=== PATIENT | female | born 1970 ===

== ENCOUNTER 2021-05-26 07:32 | Inpatient (IN) | payer OTHER ==
[~2021-05-26] VITALS: Ht 160 cm; Wt 56.4 kg
[2021-05-26] MEDS ORDERED: LORazepam 2 MG/ML, 1ML ONE (07:53)
[2021-05-26] MEDS ORDERED: PLEASE ENTER ALLERGIES MC SCH (08:00)
[2021-05-26] MEDS ORDERED: PLEASE ENTER HEIGHT AND WEIGHT MC SCH (08:00)
[2021-05-26] MEDS ORDERED: DEXTROSE 5% 500 ML IV SCH (08:00)
[2021-05-26] MEDS ORDERED: SODIUM CHLORIDE FLUSH 10ML SYR IVF ONE (08:00)
[2021-05-26] MEDS ORDERED: LORazepam 2 MG/ML, 1ML IVPush ONE ×2 (08:00→08:30)
[2021-05-26] MEDS ORDERED: LACTATED RINGERS 1,000 ML IVBOLUS ONE (08:00)
[2021-05-26 08:04] LABS: MEAN CORPUSCULAR HEMOGLOBIN 28.7 pg (27.0-34.8); MEAN CORPUSCULAR HGB CONC 31.2 g/dL (33.2-36.2); MEAN PLATELET VOLUME 8.8 fL (7.4-10.4); PLATELET COUNT 56 x10^3/uL (130-400); RED BLOOD COUNT 3.17 x10^6/uL (3.82-5.82); RED CELL DISTRIBUTION WIDTH 22.6 % (9.4-14.8)
[2021-05-26 08:17] LABS: ALBUMIN 2.9 g/dL (3.4-5.0); ANION GAP 23 mmol/L (5-15); CALCIUM 8.4 mg/dL (8.5-10.1); CHLORIDE 108 mmol/L (98-107)
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
--- NOTE | 2021-05-26 08:18 | NUR ---
Medicated for aggitation, pulling lines/tubes. Straight cath via sterile technique clear yellow urine walked to lab. Pt taken to CT is now calm. Remains ALOC. IVF LR wide open. VSS. Sinus tach no ectopy.
--- NOTE | 2021-05-26 08:20 | NUR ---
Late entry: Pt also noted to have dried blood to mouth/lips.
[2021-05-26 08:31] LABS: ALANINE AMINOTRANSFERASE 33 U/L (12-78); ALKALINE PHOSPHATASE 122 U/L (45-117); BILIRUBIN,TOTAL 3.5 mg/dL (0.2-1.0); CREATINE KINASE, TOTAL 1900 U/L (26-192); CREATININE 1.27 mg/dL (0.55-1.02); TOTAL PROTEIN 8.1 g/dL (6.4-8.2)
[2021-05-26] MEDS ORDERED: POTASSIUM CHLORIDE 40 MEQ in DEXTROSE 5% 1,000 ML IV SCH (09:00)
[2021-05-26 09:08] LABS: MICROSCOPIC AUTO
[2021-05-26 09:15] LABS: BAND#(MANUAL) 1.64 x10^3/uL; BANDS%(MANUAL) 21 % (0-7); LYMPH#(MANUAL) 0.08 x10^3/uL (1-3.4); LYMPHS% (MANUAL) 1 % (22-44); METAMYELOCYTES# (MANUAL) 0.16 x10^3/uL (0-0); METAMYELOCYTES% (MANUAL) 2 % (0-1); MONOS#(MANUAL) 0.39 x10^3/uL (0.3-2.7); MONOS% (MANUAL) 5 % (2-9); SEG#(MANUAL) 5.54 x10^3/uL (1.8-6.8); SEGS% (MANUAL) 71 % (42-75)
[2021-05-26 09:20] LABS: <PLATELET ESTIMATE> DECREASED; <PLT MORPHOLOGY> NORMAL PLT MORPH
[2021-05-26 09:20] LABS: AMPHETAMINE SCREEN, URINE Negative (Negative); BARBITURATE SCREEN, URINE Negative (Negative); BENZODIAZEPINE SCREEN, URINE Negative (Negative); CANNABINOID SCREEN, URINE Negative (Negative); COCAINE SCREEN, URINE Negative (Negative); METHADONE SCREEN, URINE Negative (Negative); OPIATE SCREEN, URINE Negative (Negative)
[2021-05-26 09:21] LABS: ANISOCYTOSIS 2+
[2021-05-26 09:22] LABS: HYPOCHROMIA 1+; OVALOCYTES 1+; POLYCHROMASIA 1+; TARGET CELLS 1+
[2021-05-26] MEDS ORDERED: CEFTRIAXONE 1,000 MG in DEXTROSE 5% 50 ML IVPB ONE (09:30)
--- NOTE | 2021-05-26 09:51 | NUR ---
Pt remains sedated s/p ativan, RR equal and unlabored, IVF infusing dial a flow, abx no cultures per ERP. Waiting for admission; pt possibly will need sitter due to ALOC, high ammonia. VSS.
--- NOTE | 2021-05-26 10:03 | NUR ---
Pt taken to xray.
--- NOTE | 2021-05-26 10:09 | NUR ---
Pt back from xray, remains sleepy RR equal and unlabored. VSS. Waiting for admission.
--- NOTE | 2021-05-26 10:23 | NUR ---
Repot to DANIEL morales pt with belongings tx to floor on monitor.
--- NOTE | 2021-05-26 10:49 | NUR ---
Hospitalist here to evaluate pt, EKG done at bedside handed to ERP. Pt tx to floor.
[2021-05-26] MEDS ORDERED: ACETAMINOPHEN 325 MG TABLET PO PRN (11:00)
[2021-05-26] MEDS ORDERED: LACTATED RINGERS 1,000 ML IV SCH (11:00)
[2021-05-26] MEDS ORDERED: ENALAPRILAT 1.25 MG/ML, 2ML IVPush PRN (11:00)
[2021-05-26] MEDS ORDERED: ONDANSETRON 2MG/ML, 2ML IVPush PRN (11:00)
[2021-05-26 11:08] VITALS: BP 112/75
[2021-05-26 13:31] VITALS: BP 126/87
[2021-05-26] MEDS ORDERED: DEXTROSE 50%, 50ML SYRINGE IVPush PRN (14:30)
[2021-05-26] MEDS ORDERED: GLUCAGON 1 MG IM PRN (14:30)
[2021-05-26] MEDS ORDERED: DEXTROSE 4 GM TAB.CHEW PO PRN (14:30)
[2021-05-26] MEDS: LORazepam 2 MG/ML, 1ML IVPush PRN ×2 (14:49→20:06)
[2021-05-26] MEDS: METRONIDAZOLE PMX 500MG/100ML 100 ML IV SCH ×2 (15:07→21:12)
[2021-05-26] MEDS: POTASSIUM CHLORIDE 40 MEQ in DEXTROSE 5% 1,000 ML IV SCH ×2 (15:20→21:59)
[2021-05-26 19:53] VITALS: BP 106/68
[2021-05-26] MEDS: SODIUM CHLORIDE FLUSH 10ML SYR IVF SCH (20:07)
[2021-05-27 01:24] VITALS: BP 115/76
[2021-05-27 02:15] VITALS: BP 111/73
[2021-05-27] MEDS: METRONIDAZOLE PMX 500MG/100ML 100 ML IV SCH ×4 (03:18→21:56)
[2021-05-27 04:29] LABS: MEAN CORPUSCULAR HEMOGLOBIN 28.8 pg (27.0-34.8); MEAN CORPUSCULAR HGB CONC 32.1 g/dL (32.4-35.8); MEAN PLATELET VOLUME 9.3 fL (7.4-10.4); RED BLOOD COUNT 3.21 x10^6/uL (3.82-5.3); RED CELL DISTRIBUTION WIDTH 23.1 % (9.6-15.2)
[2021-05-27 04:40] LABS: CHLORIDE 105 mmol/L (98-107)
[2021-05-27 04:47] LABS: ALANINE AMINOTRANSFERASE 31 U/L (12-78); ALBUMIN 2.3 g/dL (3.4-5.0); ALKALINE PHOSPHATASE 99 U/L (45-117); ANION GAP 11 mmol/L (5-15); BILIRUBIN,TOTAL 2.5 mg/dL (0.2-1.0); CREATININE 0.88 mg/dL (0.55-1.02); TOTAL PROTEIN 6.8 g/dL (6.4-8.2)
[2021-05-27] MEDS: POTASSIUM CHLORIDE 40 MEQ in DEXTROSE 5% 1,000 ML IV SCH ×2 (05:38→20:44)
[2021-05-27 05:50] LABS: PLATELET COUNT 44 x10^3/uL (130-400)
[2021-05-27 05:54] LABS: <PLATELET ESTIMATE> DECREASED; ANISOCYTOSIS 2+; BAND#(MANUAL) 0.44 x10^3/uL; BANDS%(MANUAL) 8 % (0-7); BASOS#(MANUAL) 0.11 x10^3/uL (0-0.1); BASOS% (MANUAL) 2 % (0-1); EOS#(MANUAL) 0.22 x10^3/uL (0.0-0.4); EOS% (MANUAL) 4 % (1-7); HYPOCHROMIA 1+; LYMPH#(MANUAL) 0.33 x10^3/uL (1-3.4); LYMPHS% (MANUAL) 6 % (22-44); MONOS#(MANUAL) 0.44 x10^3/uL (0.3-2.7); MONOS% (MANUAL) 8 % (2-9); OVALOCYTES 1+; POLYCHROMASIA 1+; SEG#(MANUAL) 3.96 x10^3/uL (1.8-6.8); SEGS% (MANUAL) 72 % (42-75); TARGET CELLS 1+
[2021-05-27 05:55] LABS: LARGE PLATELETS 1+; MICROCYTOSIS 1+
[2021-05-27 08:33] VITALS: BP 106/71
[2021-05-27] MEDS: SODIUM CHLORIDE FLUSH 10ML SYR IVF SCH ×2 (08:35→20:50)
[2021-05-27] MEDS: CEFTRIAXONE 2 GM in DEXTROSE 5% 50 ML IVPB SCH (09:55)
[2021-05-27] MEDS ORDERED: POTASSIUM CHLORIDE 40 MEQ in SODIUM CHLORIDE 0.9% 500 ML IV ONE (10:00)
[2021-05-27] MEDS ORDERED: POTASSIUM PHOSPHATE 44 MEQ in SODIUM CHLORIDE 0.9% 500 ML IV ONE ×2 (10:00→11:30)
[2021-05-27] MEDS ORDERED: MAGNESIUM SULFATE PMX 4GM/100M 100 ML IVPB ONE (10:00)
[2021-05-27 12:47] VITALS: BP 100/68
[2021-05-27 12:56] LABS: ANION GAP 8 mmol/L (5-15); CALCIUM 7.7 mg/dL (8.5-10.1); CHLORIDE 107 mmol/L (98-107); CREATININE 0.75 mg/dL (0.55-1.02)
[2021-05-27 14:10] VITALS: BP 103/68
[2021-05-27] MEDS: LACTULOSE 20 GM/30 ML UDC NG SCH ×3 (15:00→20:44)
[2021-05-27] MEDS: PANTOPRAZOLE 40 MG IV IVPush SCH (15:00)
[2021-05-27] MEDS ORDERED: TPN PER PHARMACY MC SCH (15:00)
[2021-05-27] MEDS ORDERED: CALCIUM GLUCONATE 0.46MEQ/1ML IVPush ONE (15:00)
[2021-05-27] MEDS ORDERED: AMINO ACID 10% IV SCH (15:30)
[2021-05-27] MEDS ORDERED: DEXTROSE 70% IV SCH (15:30)
[2021-05-27] MEDS ORDERED: [UNRECOGNIZED DRUG - OTHER] IV SCH (15:30)
[2021-05-27] MEDS ORDERED: FAT EMUL IV SCH (15:30)
[2021-05-27] MEDS ORDERED: SMOF TPN IV SCH (15:30)
[2021-05-27] MEDS ORDERED: CALCIUM GLUCONATE 4.6 MEQ in SODIUM CHLORIDE 0.9% 100 ML IV ONE (15:30)
[2021-05-27] MEDS ORDERED: DEXTROSE 50%, 50ML SYRINGE IVPush PRN (17:00)
[2021-05-27] MEDS ORDERED: DEXTROSE 10% 500 ML IV PRN (17:00)
[2021-05-27] MEDS ORDERED: PVN PER PHARMACY IV SCH (17:00)
[2021-05-27 18:01] LABS: MEAN CORPUSCULAR HEMOGLOBIN 28.5 pg (27.0-34.8); MEAN CORPUSCULAR HGB CONC 30.5 g/dL (32.4-35.8); MEAN PLATELET VOLUME 9.6 fL (7.4-10.4); PLATELET COUNT 64 x10^3/uL (130-400); RED BLOOD COUNT 3.28 x10^6/uL (3.82-5.3); RED CELL DISTRIBUTION WIDTH 23.4 % (9.6-15.2)
[2021-05-27] MEDS ORDERED: PROPOFOL 100 ML IV ONE (18:09)
[2021-05-27 18:11] LABS: INTERNATIONAL NORMALIZED RATIO 1.46 (0.93-1.1); PROTHROMBIN TIME 15.3 Seconds (9.6-11.5)
[2021-05-27 18:12] LABS: ALANINE AMINOTRANSFERASE 36 U/L (12-78); ALBUMIN 2.3 g/dL (3.4-5.0); ANION GAP 15 mmol/L (5-15); CHLORIDE 110 mmol/L (98-107); CREATININE 1.04 mg/dL (0.55-1.02)
[2021-05-27 18:15] LABS: ALKALINE PHOSPHATASE 131 U/L (45-117); BILIRUBIN,TOTAL 1.8 mg/dL (0.2-1.0); TOTAL PROTEIN 6.9 g/dL (6.4-8.2)
[2021-05-27] MEDS ORDERED: CALCIUM CHLORIDE 10%, 10ML SYR ONE (18:30)
[2021-05-27] MEDS ORDERED: EPINEPHRINE SYRINGE 0.1 MG/ML, 10ML ONE (18:30)
[2021-05-27] MEDS ORDERED: MAGNESIUM SULFATE 1 GM/2 ML ONE (18:30)
[2021-05-27] MEDS ORDERED: LIDOCAINE-MPF 1%, 2ML ENDO PRN (18:30)
[2021-05-27] MEDS ORDERED: PHARMACY MAY ADJ FOR RENAL FX MC SCH (18:30)
[2021-05-27] MEDS: PROPOFOL 100 ML IV PRN ×2 (18:30→23:13)
[2021-05-27] MEDS ORDERED: CODE BLUE RESPONSE XX ONE (18:30)
[2021-05-27] MEDS ORDERED: AMIODARONE 50 MG/ML, 3ML ONE (18:30)
[2021-05-27] MEDS: NOREPINEPHRINE 8 MG in SODIUM CHLORIDE 0.9% 242 ML IV PRN (18:40)
[2021-05-27] MEDS: AMIODARONE 450 MG in DEXTROSE 5% 241 ML IV PRN (18:47)
[2021-05-27] MEDS ORDERED: FILTER 0.22 MICRON FOR AMIODARONE IV PRN (19:00)
[2021-05-27] MEDS ORDERED: LACTATED RINGERS 1,000 ML IVBOLUS ONE ×2 (19:00→20:30)
[2021-05-27 19:07] LABS: BAND#(MANUAL) 0.63 x10^3/uL; BANDS%(MANUAL) 4 % (0-7); BASOS#(MANUAL) 0.16 x10^3/uL (0-0.1); BASOS% (MANUAL) 1 % (0-1); EOS#(MANUAL) 0.47 x10^3/uL (0.0-0.4); EOS% (MANUAL) 3 % (1-7); LYMPH#(MANUAL) 2.04 x10^3/uL (1-3.4); LYMPHS% (MANUAL) 13 % (22-44); METAMYELOCYTES# (MANUAL) 1.73 x10^3/uL (0-0); METAMYELOCYTES% (MANUAL) 11 % (0-1); MONOS#(MANUAL) 0.47 x10^3/uL (0.3-2.7); MONOS% (MANUAL) 3 % (2-9); SEG#(MANUAL) 10.21 x10^3/uL (1.8-6.8); SEGS% (MANUAL) 65 % (42-75)
[2021-05-27 19:08] LABS: <PLATELET ESTIMATE> DECREASED; <PLT MORPHOLOGY> NORMAL PLT MORPH
[2021-05-27 19:10] LABS: ANISOCYTOSIS 1+; POLYCHROMASIA 1+
[2021-05-27 19:11] LABS: CRENATED 1+; OVALOCYTES 1+
[2021-05-27] MEDS ORDERED: POTASSIUM CHLORIDE 30 MEQ in SODIUM CHLORIDE 0.9% 100 ML IV ONE (20:00)
[2021-05-27] MEDS: KSCALE TO 4.0 IV SCH (20:05)
[2021-05-27] MEDS ORDERED: SODIUM BICARB 8.4%, 50ML SYRINGE IVPush ONE (20:30)
[2021-05-27] MEDS: INSULIN REGULAR MEDIUM DOSE Q6H X 48HRS SQ-INSULIN SCH (20:50)
[2021-05-27] MEDS ORDERED: POTASSIUM PHOSPHATE 44 MEQ in SODIUM CHLORIDE 0.9% 500 ML IV SCH (21:00)
[2021-05-28] MEDS: KSCALE TO 4.0 IV SCH ×3 (00:30→12:30)
[2021-05-28 00:55] LABS: ALANINE AMINOTRANSFERASE 35 U/L (12-78); ALBUMIN 1.7 g/dL (3.4-5.0); ANION GAP 9 mmol/L (5-15); CALCIUM 8.1 mg/dL (8.5-10.1); CHLORIDE 110 mmol/L (98-107); CREATININE 1.05 mg/dL (0.55-1.02)
[2021-05-28 00:57] LABS: ALKALINE PHOSPHATASE 93 U/L (45-117); BILIRUBIN,TOTAL 2.2 mg/dL (0.2-1.0); TOTAL PROTEIN 5.4 g/dL (6.4-8.2)
[2021-05-28] MEDS: AMIODARONE 450 MG in DEXTROSE 5% 241 ML IV PRN (01:50)
[2021-05-28] MEDS: PANTOPRAZOLE 40 MG IV IVPush SCH ×2 (03:27→15:20)
[2021-05-28] MEDS: METRONIDAZOLE PMX 500MG/100ML 100 ML IV SCH ×4 (03:27→19:59)
[2021-05-28] MEDS: INSULIN REGULAR MEDIUM DOSE Q6H X 48HRS SQ-INSULIN SCH ×4 (03:37→20:02)
[2021-05-28] MEDS: POTASSIUM CHLORIDE 40 MEQ in DEXTROSE 5% 1,000 ML IV SCH (03:39)
[2021-05-28 03:52] LABS: MEAN CORPUSCULAR HEMOGLOBIN 29.7 pg (27.0-34.8); MEAN PLATELET VOLUME 9.5 fL (7.4-10.4); PLATELET COUNT 78 x10^3/uL (130-400); RED BLOOD COUNT 2.29 x10^6/uL (3.82-5.3); RED CELL DISTRIBUTION WIDTH 23.4 % (9.6-15.2)
[2021-05-28 04:02] LABS: ANION GAP 10 mmol/L (5-15); CALCIUM 7.8 mg/dL (8.5-10.1); CHLORIDE 109 mmol/L (98-107)
[2021-05-28 04:10] LABS: ALANINE AMINOTRANSFERASE 37 U/L (12-78); ALKALINE PHOSPHATASE 86 U/L (45-117); CREATININE 1.02 mg/dL (0.55-1.02); PREALBUMIN 6.3 mg/dL (20.0-40.0); TOTAL PROTEIN 5.3 g/dL (6.4-8.2); TRIGLYCERIDES 157 mg/dL (50-200)
[2021-05-28 05:46] LABS: BASOPHILS % (AUTO) 0 % (0-1); EOSINOPHILS % (AUTO) 1 % (1-7); LYMPHOCYTES % (AUTO) 6 % (22-44); MEAN CORPUSCULAR HGB CONC 31.9 g/dL (32.4-35.8); MEAN PLATELET VOLUME 9.9 fL (7.4-10.4); MONOCYTES % (AUTO) 7 % (2-9); NEUTROPHILS % (AUTO) 85 % (42-75); PLATELET COUNT 81 x10^3/uL (130-400); RED BLOOD COUNT 2.46 x10^6/uL (3.82-5.3); RED CELL DISTRIBUTION WIDTH 23.6 % (9.6-15.2)
[2021-05-28 05:50] LABS: ANISOCYTOSIS 1+; BAND#(MANUAL) 0.54 x10^3/uL; BANDS%(MANUAL) 5 % (0-7); LYMPH#(MANUAL) 0.32 x10^3/uL (1-3.4); LYMPHS% (MANUAL) 3 % (22-44); MONOS#(MANUAL) 0.43 x10^3/uL (0.3-2.7); MONOS% (MANUAL) 4 % (2-9); POLYCHROMASIA 1+; SEG#(MANUAL) 9.42 x10^3/uL (1.8-6.8); SEGS% (MANUAL) 88 % (42-75)
[2021-05-28 05:51] LABS: <PLATELET ESTIMATE> DECREASED; <PLT MORPHOLOGY> NORMAL PLT MORPH
[2021-05-28 05:56] LABS: ALBUMIN 1.8 g/dL (3.4-5.0); ANION GAP 9 mmol/L (5-15); CHLORIDE 109 mmol/L (98-107); TRIGLYCERIDES 182 mg/dL (50-200)
[2021-05-28] MEDS ORDERED: POTASSIUM PHOSPHATE 44 MEQ in SODIUM CHLORIDE 0.9% 500 ML IV ONE ×3 (06:00→13:30)
[2021-05-28] MEDS ORDERED: PHYTONADIONE 10 MG in SODIUM CHLORIDE 0.9% 50 ML IV ONE (06:00)
[2021-05-28] MEDS ORDERED: POTASSIUM CHLORIDE 10% 40 MEQ/30 ML UDC PO ONE (06:00)
[2021-05-28 06:02] LABS: ALANINE AMINOTRANSFERASE 38 U/L (12-78); ALKALINE PHOSPHATASE 87 U/L (45-117); BILIRUBIN,TOTAL 2.1 mg/dL (0.2-1.0); PREALBUMIN 6.6 mg/dL (20.0-40.0); TOTAL PROTEIN 5.5 g/dL (6.4-8.2)
[2021-05-28] MEDS: NOREPINEPHRINE 8 MG in SODIUM CHLORIDE 0.9% 242 ML IV PRN ×2 (06:55→20:00)
[2021-05-28 06:56] LABS: ANISOCYTOSIS 1+; BANDS%(MANUAL) 6 % (0-7); EOS#(MANUAL) 0.12 x10^3/uL (0.0-0.4); EOS% (MANUAL) 1 % (1-7); LYMPHS% (MANUAL) 6 % (22-44); MONOS#(MANUAL) 0.46 x10^3/uL (0.3-2.7); MONOS% (MANUAL) 4 % (2-9); POLYCHROMASIA 1+; SEG#(MANUAL) 9.63 x10^3/uL (1.8-6.8); SEGS% (MANUAL) 83 % (42-75)
[2021-05-28 06:57] LABS: <PLATELET ESTIMATE> DECREASED; <PLT MORPHOLOGY> NORMAL PLT MORPH; HYPOCHROMIA 1+; OVALOCYTES 1+
[2021-05-28] MEDS: CEFTRIAXONE 2 GM in DEXTROSE 5% 50 ML IVPB SCH (09:33)
[2021-05-28] MEDS: LACTULOSE 20 GM/30 ML UDC NG SCH ×3 (09:41→19:59)
[2021-05-28] MEDS: SODIUM CHLORIDE FLUSH 10ML SYR IVF SCH ×2 (09:42→19:59)
[2021-05-28] MEDS: PROPOFOL 100 ML IV PRN ×3 (09:42→23:47)
[2021-05-28] MEDS ORDERED: SUCCINYLCHOLINE 20 MG/ML, 10ML ONE (10:46)
[2021-05-28] MEDS ORDERED: EPINEPHRINE SYRINGE 0.1 MG/ML, 10ML ONE (10:53)
[2021-05-28] MEDS ORDERED: POTASSIUM CHLORIDE 40 MEQ in DEXTROSE 5% 1,000 ML IV SCH (11:00)
[2021-05-28 11:17] VITALS: BP 101/53
[2021-05-28 11:32] VITALS: BP 102/69
[2021-05-28 11:47] VITALS: BP 90/55
[2021-05-28 13:58] VITALS: BP 113/76
[2021-05-28 15:00] VITALS: BP 99/51
[2021-05-28] MEDS ORDERED: AMINO ACID 10% IV SCH (17:00)
[2021-05-28] MEDS ORDERED: DEXTROSE 70% IV SCH (17:00)
[2021-05-28] MEDS ORDERED: [UNRECOGNIZED DRUG - OTHER] IV SCH (17:00)
[2021-05-28] MEDS ORDERED: SMOF TPN IV SCH (17:00)
[2021-05-28] MEDS ORDERED: DEXTROSE 5% 1,000 ML IV SCH (17:00)
[2021-05-28] MEDS ORDERED: FAT EMUL IV SCH (17:00)
[2021-05-29] MEDS: METRONIDAZOLE PMX 500MG/100ML 100 ML IV SCH ×4 (02:13→19:48)
[2021-05-29] MEDS: PANTOPRAZOLE 40 MG IV IVPush SCH ×2 (02:13→16:50)
[2021-05-29] MEDS: INSULIN REGULAR MEDIUM DOSE Q6H X 48HRS SQ-INSULIN SCH ×3 (02:17→16:50)
[2021-05-29 04:30] LABS: CHLORIDE 114 mmol/L (98-107)
[2021-05-29] MEDS: PROPOFOL 100 ML IV PRN ×4 (04:36→22:47)
[2021-05-29 04:39] LABS: ANION GAP 5 mmol/L (5-15); CALCIUM 6.4 mg/dL (8.5-10.1)
[2021-05-29 04:52] LABS: INTERNATIONAL NORMALIZED RATIO 1.84 (0.93-1.1); PROTHROMBIN TIME 19.1 Seconds (9.6-11.5)
[2021-05-29 05:00] LABS: MEAN CORPUSCULAR HGB CONC 33.4 g/dL (32.4-35.8); MEAN PLATELET VOLUME 9.5 fL (7.4-10.4); RED BLOOD COUNT 2.58 x10^6/uL (3.82-5.3); RED CELL DISTRIBUTION WIDTH 21.4 % (9.6-15.2)
[2021-05-29] MEDS ORDERED: POTASSIUM PHOSPHATE 44 MEQ in SODIUM CHLORIDE 0.9% 500 ML IV ONE (05:00)
[2021-05-29 05:05] LABS: PLATELET COUNT 52 x10^3/uL (130-400)
[2021-05-29] MEDS: MAGNESIUM SULFATE PMX 2GM/50ML 50 ML IVPB SCH ×2 (05:20→08:53)
[2021-05-29] MEDS ORDERED: CALCIUM GLUCONATE 4.6 MEQ/10 ML IVPush ONE (05:30)
[2021-05-29 05:42] VITALS: BP 79/47
[2021-05-29 05:51] LABS: BASOS#(MANUAL) 0.07 x10^3/uL (0-0.1); BASOS% (MANUAL) 1 % (0-1); METAMYELOCYTES# (MANUAL) 0.07 x10^3/uL (0-0); METAMYELOCYTES% (MANUAL) 1 % (0-1)
[2021-05-29 05:52] LABS: ANISOCYTOSIS 1+; BAND#(MANUAL) 0.28 x10^3/uL; BANDS%(MANUAL) 4 % (0-7); EOS#(MANUAL) 0.43 x10^3/uL (0.0-0.4); EOS% (MANUAL) 6 % (1-7); HYPOCHROMIA 1+; LYMPH#(MANUAL) 0.43 x10^3/uL (1-3.4); LYMPHS% (MANUAL) 6 % (22-44); MONOS% (MANUAL) 7 % (2-9); POLYCHROMASIA 1+; SEG#(MANUAL) 5.33 x10^3/uL (1.8-6.8); SEGS% (MANUAL) 75 % (42-75)
[2021-05-29 05:53] LABS: <PLATELET ESTIMATE> DECREASED; <PLT MORPHOLOGY> NORMAL PLT MORPH; OVALOCYTES 1+
[2021-05-29 05:58] VITALS: BP 95/60
[2021-05-29] MEDS ORDERED: CALCIUM GLUCONATE 4.6 MEQ in SODIUM CHLORIDE 0.9% 100 ML IV ONE ×2 (06:00→11:00)
[2021-05-29 07:00] VITALS: BP 104/68
[2021-05-29 08:00] VITALS: BP 105/71
[2021-05-29] MEDS: SODIUM CHLORIDE FLUSH 10ML SYR IVF SCH ×2 (08:45→19:48)
[2021-05-29] MEDS: CEFTRIAXONE 2 GM in DEXTROSE 5% 50 ML IVPB SCH (08:45)
[2021-05-29] MEDS: LACTULOSE 20 GM/30 ML UDC NG SCH ×3 (08:52→19:48)
[2021-05-29] MEDS ORDERED: DEXTROSE 5% 1,000 ML IV SCH (09:58)
[2021-05-29] MEDS ORDERED: STERILE WATER IV SCH (17:00)
[2021-05-29] MEDS ORDERED: DEXTROSE 70% IV SCH (17:00)
[2021-05-29] MEDS ORDERED: AMINO ACID 10% IV SCH (17:00)
[2021-05-29] MEDS ORDERED: [UNRECOGNIZED DRUG - OTHER] IV SCH (17:00)
[2021-05-29] MEDS: FILTER, DISP 1.2 MICRON FOR TPN/PVN IV PRN (17:38)
[2021-05-30] MEDS: PANTOPRAZOLE 40 MG IV IVPush SCH ×2 (03:16→15:27)
[2021-05-30] MEDS: METRONIDAZOLE PMX 500MG/100ML 100 ML IV SCH ×2 (03:16→08:28)
[2021-05-30] MEDS: PROPOFOL 100 ML IV PRN ×4 (04:00→20:46)
[2021-05-30 04:54] LABS: MEAN CORPUSCULAR HEMOGLOBIN 30.7 pg (27.0-34.8); MEAN CORPUSCULAR HGB CONC 33.6 g/dL (32.4-35.8); MEAN PLATELET VOLUME 8.7 fL (7.4-10.4); PLATELET COUNT 66 x10^3/uL (130-400); RED BLOOD COUNT 3.21 x10^6/uL (3.82-5.3); RED CELL DISTRIBUTION WIDTH 20.6 % (9.6-15.2)
[2021-05-30 05:00] LABS: ALBUMIN 1.7 g/dL (3.4-5.0); ANION GAP 3 mmol/L (5-15); CALCIUM 6.8 mg/dL (8.5-10.1); CHLORIDE 114 mmol/L (98-107)
[2021-05-30 05:05] LABS: ALANINE AMINOTRANSFERASE 34 U/L (12-78); ALKALINE PHOSPHATASE 95 U/L (45-117); BILIRUBIN,TOTAL 1.9 mg/dL (0.2-1.0); CREATININE 0.79 mg/dL (0.55-1.02); TOTAL PROTEIN 5.4 g/dL (6.4-8.2); TRIGLYCERIDES 61 mg/dL (50-200)
[2021-05-30 05:54] LABS: BAND#(MANUAL) 0.12 x10^3/uL; BANDS%(MANUAL) 2 % (0-7); EOS#(MANUAL) 0.43 x10^3/uL (0.0-0.4); EOS% (MANUAL) 7 % (1-7); LYMPH#(MANUAL) 0.62 x10^3/uL (1-3.4); LYMPHS% (MANUAL) 10 % (22-44); MONOS#(MANUAL) 0.93 x10^3/uL (0.3-2.7); MONOS% (MANUAL) 15 % (2-9); SEG#(MANUAL) 4.09 x10^3/uL (1.8-6.8); SEGS% (MANUAL) 66 % (42-75)
[2021-05-30 05:56] LABS: ANISOCYTOSIS 1+; HYPOCHROMIA 1+; OVALOCYTES 1+; POLYCHROMASIA 1+; TEAR DROPS 1+
[2021-05-30 05:57] LABS: TARGET CELLS 1+
[2021-05-30 05:58] LABS: <PLATELET ESTIMATE> DECREASED; <PLT MORPHOLOGY> NORMAL PLT MORPH
[2021-05-30] MEDS ORDERED: CALCIUM CHLORIDE 27.2 MEQ in SODIUM CHLORIDE 0.9% 100 ML IV ONE (06:00)
[2021-05-30] MEDS ORDERED: SODIUM PHOSPHATE 30 MMOL in SODIUM CHLORIDE 0.9% 500 ML IV ONE (06:00)
[2021-05-30] MEDS: LACTULOSE 20 GM/30 ML UDC NG SCH (08:14)
[2021-05-30] MEDS: INSULIN REGULAR MEDIUM DOSE QDAY SQ-INSULIN SCH (08:20)
[2021-05-30] MEDS: SODIUM CHLORIDE FLUSH 10ML SYR IVF SCH ×2 (08:28→20:46)
[2021-05-30] MEDS ORDERED: LACTULOSE 20 GM/30 ML UDC NG PRN (09:30)
[2021-05-30] MEDS: DIVALPROEX 125 MG CAP.SPRINK PO SCH ×2 (09:53→20:46)
[2021-05-30] MEDS ORDERED: MAGNESIUM SULFATE PMX 2GM/50ML 50 ML IV ONE (10:30)
[2021-05-30] MEDS ORDERED: CEFAZOLIN 2,000 MG in SODIUM CHLORIDE 0.9% 50 ML IV SCH (10:30)
[2021-05-30] MEDS: CEFAZOLIN PMX 2GM/50ML 50 ML IVPB SCH ×2 (10:40→18:01)
[2021-05-30] MEDS ORDERED: FENTANYL PF 100 MCG/2ML ONE (11:19)
[2021-05-30] MEDS: FENTANYL PF 100 MCG/2ML IVPush PRN ×3 (11:21→23:11)
--- NOTE | 2021-05-30 13:28 | NUR ---
Promote goal:50 ml/hr on propofol, 60 ml/hr off propofol Addendum: 05/30/21 at [address] Amended: Links added.
[2021-05-30] MEDS: FILTER, DISP 1.2 MICRON FOR TPN/PVN IV PRN (16:47)
[2021-05-30] MEDS ORDERED: [UNRECOGNIZED DRUG - OTHER] IV SCH (17:00)
[2021-05-30] MEDS ORDERED: STERILE WATER IV SCH (17:00)
[2021-05-30] MEDS ORDERED: DEXTROSE 70% IV SCH (17:00)
[2021-05-30] MEDS ORDERED: AMINO ACID 10% IV SCH (17:00)
[2021-05-31] MEDS: FENTANYL PF 100 MCG/2ML IVPush PRN (01:15)
[2021-05-31] MEDS: CEFAZOLIN PMX 2GM/50ML 50 ML IVPB SCH ×3 (02:59→18:12)
[2021-05-31] MEDS: PROPOFOL 100 ML IV PRN (03:15)
[2021-05-31] MEDS: PANTOPRAZOLE 40 MG IV IVPush SCH ×2 (03:15→14:55)
[2021-05-31 05:06] LABS: ANION GAP 5 mmol/L (5-15); CALCIUM 7.4 mg/dL (8.5-10.1); CHLORIDE 111 mmol/L (98-107); CREATININE 0.87 mg/dL (0.55-1.02)
[2021-05-31] MEDS: INSULIN REGULAR MEDIUM DOSE QDAY SQ-INSULIN SCH (08:48)
[2021-05-31] MEDS: SODIUM CHLORIDE FLUSH 10ML SYR IVF SCH ×2 (08:51→21:00)
[2021-05-31] MEDS: DIVALPROEX 125 MG CAP.SPRINK PO SCH (08:51)
[2021-05-31] MEDS ORDERED: LACTULOSE 20 GM/30 ML UDC PO SCH (10:30)
[2021-05-31] MEDS ORDERED: DEXTROSE 5% 1,000 ML IV SCH (10:32)
[2021-05-31] MEDS ORDERED: GLUCAGON 1 MG IM PRN (12:00)
[2021-06-01] MEDS: PANTOPRAZOLE 40 MG IV IVPush SCH ×2 (02:41→15:33)
[2021-06-01] MEDS: CEFAZOLIN PMX 2GM/50ML 50 ML IVPB SCH ×3 (02:41→21:41)
[2021-06-01 04:54] LABS: MEAN CORPUSCULAR HEMOGLOBIN 30.3 pg (27.0-34.8); MEAN CORPUSCULAR HGB CONC 32.7 g/dL (32.4-35.8); MEAN PLATELET VOLUME 9.5 fL (7.4-10.4); PLATELET COUNT 66 x10^3/uL (130-400); RED BLOOD COUNT 3.07 x10^6/uL (3.82-5.3); RED CELL DISTRIBUTION WIDTH 21.6 % (9.6-15.2)
[2021-06-01 04:55] LABS: ALANINE AMINOTRANSFERASE 18 U/L (12-78); ALBUMIN 1.5 g/dL (3.4-5.0); ANION GAP 5 mmol/L (5-15); CALCIUM 7.3 mg/dL (8.5-10.1); CHLORIDE 109 mmol/L (98-107); CREATININE 0.87 mg/dL (0.55-1.02)
[2021-06-01 04:57] LABS: ALKALINE PHOSPHATASE 107 U/L (45-117); BILIRUBIN,TOTAL 1.7 mg/dL (0.2-1.0); TOTAL PROTEIN 5.5 g/dL (6.4-8.2)
[2021-06-01 05:51] LABS: BAND#(MANUAL) 0.12 x10^3/uL; BANDS%(MANUAL) 3 % (0-7); BASOS#(MANUAL) 0.04 x10^3/uL (0-0.1); BASOS% (MANUAL) 1 % (0-1); EOS#(MANUAL) 0.45 x10^3/uL (0.0-0.4); EOS% (MANUAL) 11 % (1-7); LYMPH#(MANUAL) 0.45 x10^3/uL (1-3.4); LYMPHS% (MANUAL) 11 % (22-44); METAMYELOCYTES# (MANUAL) 0.04 x10^3/uL (0-0); METAMYELOCYTES% (MANUAL) 1 % (0-1); MONOS#(MANUAL) 0.62 x10^3/uL (0.3-2.7); MONOS% (MANUAL) 15 % (2-9); SEG#(MANUAL) 2.38 x10^3/uL (1.8-6.8); SEGS% (MANUAL) 58 % (42-75)
[2021-06-01 05:52] LABS: <PLATELET ESTIMATE> DECREASED; <PLT MORPHOLOGY> NORMAL PLT MORPH; ANISOCYTOSIS 1+; HYPOCHROMIA 1+; OVALOCYTES 1+; POLYCHROMASIA 1+
[2021-06-01] MEDS ORDERED: LACTULOSE 20 GM/30 ML UDC PO PRN (08:00)
[2021-06-01] MEDS: SODIUM CHLORIDE FLUSH 10ML SYR IVF SCH ×2 (09:50→21:41)
[2021-06-01 10:10] VITALS: BP 107/72
[2021-06-01 14:00] VITALS: BP 92/45
[2021-06-01] MEDS ORDERED: MAGNESIUM SULFATE PMX 4GM/100M 100 ML IVPB ONE (15:30)
[2021-06-01 19:03] VITALS: BP 108/70
[2021-06-02 00:38] VITALS: BP 105/69
[2021-06-02] MEDS: PANTOPRAZOLE 40 MG IV IVPush SCH (04:06)
[2021-06-02] MEDS: CEFAZOLIN PMX 2GM/50ML 50 ML IVPB SCH ×2 (04:22→13:30)
[2021-06-02 04:47] LABS: ALBUMIN 1.7 g/dL (3.4-5.0); ANION GAP 6 mmol/L (5-15); BASOPHILS % (AUTO) 1 % (0-1); CALCIUM 7.5 mg/dL (8.5-10.1); CHLORIDE 109 mmol/L (98-107); EOSINOPHILS % (AUTO) 3 % (1-7); LYMPHOCYTES % (AUTO) 11 % (22-44); MEAN CORPUSCULAR HEMOGLOBIN 30.4 pg (27.0-34.8); MEAN CORPUSCULAR HGB CONC 32.7 g/dL (32.4-35.8); MEAN PLATELET VOLUME 9.5 fL (7.4-10.4); MONOCYTES % (AUTO) 19 % (2-9); NEUTROPHILS % (AUTO) 67 % (42-75); PLATELET COUNT 71 x10^3/uL (130-400); RED BLOOD COUNT 3.13 x10^6/uL (3.82-5.3); RED CELL DISTRIBUTION WIDTH 21.5 % (9.6-15.2)
[2021-06-02 04:52] LABS: ALANINE AMINOTRANSFERASE 16 U/L (12-78); ALKALINE PHOSPHATASE 122 U/L (45-117); BILIRUBIN,TOTAL 2.1 mg/dL (0.2-1.0); CREATININE 0.69 mg/dL (0.55-1.02); TOTAL PROTEIN 5.7 g/dL (6.4-8.2)
[2021-06-02 07:05] VITALS: BP 113/72
[2021-06-02] MEDS: SODIUM CHLORIDE FLUSH 10ML SYR IVF SCH (08:38)
[2021-06-02] MEDS ORDERED: OMEP-110 PO (15:56)
[2021-06-02] MEDS ORDERED: CEFD300C37 PO (15:56)
== END 2021-06-02 15:11 | disposition home or self-care (01) | DRG 208 ==
LOC: EDSEX 07:32 → EDBD 07:32 → ED 09:37 → 4EST 10:58 → CCU 05-27 17:59 → 5SO 06-01 10:07
PROVIDERS: ADMIT Emergency Medicine; ATTEND Family Medicine
PROC: 5A12012 Performance of Cardiac Output, Single, Manual (ICD-10-PCS; principal; 2021-05-26)
PROC: 0BH17EZ Insertion of Endotracheal Airway into Trachea, Via Natural or Artificial Opening (ICD-10-PCS; 2021-05-26)
PROC: 5A1945Z Respiratory Ventilation, 24-96 Consecutive Hours (ICD-10-PCS; 2021-05-27)
PROC: 02HV33Z Insertion of Infusion Device into Superior Vena Cava, Percutaneous Approach (ICD-10-PCS; 2021-05-27)
PROC: B5181ZA Fluoroscopy of Superior Vena Cava using Low Osmolar Contrast, Guidance (ICD-10-PCS; 2021-05-27)
PROC: B548ZZA Ultrasonography of Superior Vena Cava, Guidance (ICD-10-PCS; 2021-05-27)
PROC: 30233N1 Transfusion of Nonautologous Red Blood Cells into Peripheral Vein, Percutaneous Approach (ICD-10-PCS; 2021-05-28)
PROC: 5A1945Z Respiratory Ventilation, 24-96 Consecutive Hours (ICD-10-PCS; 2021-05-29)
DX: J96.01 Acute respiratory failure with hypoxia (principal); N17.0 Acute kidney failure with tubular necrosis; G93.41 Metabolic encephalopathy; I46.2 Cardiac arrest due to underlying cardiac condition; J18.9 Pneumonia, unspecified organism; I49.01 Ventricular fibrillation; K92.2 Gastrointestinal hemorrhage, unspecified; N39.0 Urinary tract infection, site not specified; E87.2 Acidosis; R57.9 Shock, unspecified; M62.82 Rhabdomyolysis; Z99.11 Dependence on respirator [ventilator] status; E88.09 Other disorders of plasma-protein metabolism, not elsewhere classified; E87.5 Hyperkalemia; E87.6 Hypokalemia; F10.20 Alcohol dependence, uncomplicated; H57.04 Mydriasis; I48.91 Unspecified atrial fibrillation; E86.1 Hypovolemia; K70.30 Alcoholic cirrhosis of liver without ascites; K70.10 Alcoholic hepatitis without ascites; E86.0 Dehydration; E83.51 Hypocalcemia; E83.42 Hypomagnesemia; E83.39 Other disorders of phosphorus metabolism; E16.2 Hypoglycemia, unspecified; D69.6 Thrombocytopenia, unspecified; D63.8 Anemia in other chronic diseases classified elsewhere; B96.20 Unspecified Escherichia coli [E. coli] as the cause of diseases classified elsewhere; K72.90 Hepatic failure, unspecified without coma; Z79.899 Other long term (current) drug therapy
CPT/HCPCS: 36415; 36600; 72170; 74018; 96361; 96365; 99291; J3475; 36573; 70450; 71045; 72125; 80048; 80053; 80307; 80320; 81001; 82140; 82330; 82533; 82550; 82803; 82962; 83036; 83605; 83735; 84100; 84132; 84134; 84478; 85014; 85018; 85025; 85610; 86850; 86900; 86923; 87040; 87070; 87077; 87081; 87086; 87186; 87205; 87305; 92950; 93005; 93306; 94002; 94003; G0378; J0610; J0690; J0696; J1815; J2704; J3010; J3411; J3430; J3480; J7060; J7070; C1751; C9113; G0480; J0282; J0330; J2060; J7040; J7050; J7120; P9016